=== PATIENT | male | born 2000 | race Asian ===

== ENCOUNTER 2022-12-14 09:08 | Emergency (ER) | payer BC, SELFPAY ==
[2022-12-14 09:12] VITALS: BP 130/83; PULSE 821; RESP 18; TEMP 36.3; O2SAT 96; BMI 26.6
--- NOTE | 2022-12-14 09:34 | ED_ITS ---
HPI - General Adult General Chief complaint: Laceration/Wound Stated complaint: RT pinky lac Time Seen by Provider: 12/14/22 09:11 History of Present Illness HPI narrative: Patient accidentally cut his right little finger over the dorsum of the mid phalanx on glass last night. He does not think he has any glass in the wound it is fairly small about 3 mm, but it does gape slightly. No bleeding, this happened last night. He thinks he is up-to-date on tetanus. He is otherwise quite healthy. He is moving the finger fully Related Data Home Medications Medication Instructions Recorded Confirmed No Known Home Medications 12/14/22 12/14/22 Allergies Allergy/AdvReac Type Severity Reaction Status Date / Time No Known Drug Allergies Allergy Verified 12/14/22 09:14 Review of Systems Narrative: No history infections, thinks he is up-to-date on tetanus PFSH PFSH Social History Smoking Status: Never smoker Do you use any of these nicotine containing products: None Non-prescribed substance use: denies use Exam Narrative: Exam Narrative: Objective: Vital signs unremarkable the patient's right little finger over the dorsum mid phalanx shows a small 3 mm cut gapes minimally looks fairly shallow. Cannot feel any glass in the area Procedure: Sterile soaking in Shur-Clens and saline. Will get an x-ray for completeness given throughout foreign body. Const: Vital Signs, click to edit/add: Vital Signs - 24 hr 12/14/22 09:12 Temperature 97.3 F L Pulse Rate [Right Pulse Oximeter] 821 H Respiratory Rate 18 Blood Pressure [Ri ght Upper Arm] 130/83 Pulse Oximetry 96 Oxygen Delivery Me thod Room Air Course Vital Signs Vital signs: Initial Vital Signs Temperature 97.3 F L 12/14/22 09:12 Temperature Source Temporal Artery Scan 12/14/22 09:12 Pulse Rate 821 H 12/14/22 09:12 Respiratory Rate 18 12/14/22 09:12 Blood Pressure 130/83 12/14/22 09:12 Blood Pressure Mean 98 12/14/22 09:12 Blood Pressure Position Sitting 12/14/22 09:12 Pulse Oximetry 96 12/14/22 09:12 Oxygen Delivery Method Room Air 12/14/22 09:12 Vital Signs Temperature 97.3 F L 12/14/22 09:12 Pulse Rate 821 H 12/14/22 09:12 Respiratory Rate 18 12/14/22 09:12 Blood Pressure 130/83 12/14/22 09:12 Pulse Oximetry 96 12/14/22 09:12 Oxygen Delivery Method Room Air 12/14/22 09:12 Temperature 97.3 F L 12/14/22 09:12 Pulse Rate 821 H 12/14/22 09:12 Respiratory Rate 18 12/14/22 09:12 Blood Pressure 130/83 12/14/22 09:12 Pulse Oximetry 96 12/14/22 09:12 Oxygen Delivery Method Room Air 12/14/22 09:12 Medical Decision Making MDM Narrative Medical decision making narrative: Will check on the patient's tetanus status, soak the wound, I do not think it needs stitches it is fairly small and superficial. Make sure there was no glass shard deep. Will get an x-ray. If this is negative then observation keep covered for couple of days bacitracin topically as needed. Return as needed. Addendum: Patient declined x-ray to rule out foreign body. He is up-to-date on tetanus by his history he thinks he had 1 in 2019. Keep covered soak as needed bacitracin topically and a bandage. Discharge Plan Discharge Clinical Impression: Laceration Patient Disposition: Home, Self-Care Condition: Stable Additional Instructions: Keep dressing on today. Soak twice a day in soapy water starting tomorrow, cover with a bandage, bacitracin topically as needed. Return as needed if redness or changes of infection. Activity Level: Light activity Discharge Diet: Regular Prescriptions: No Action No Known Home Medications Stand Alone Forms: [employer] Info Instructions
--- NOTE | 2022-12-14 09:34 | ED.NURSE ---
Pt finger soaking in hibiclens.
== END 2022-12-14 10:16 | disposition home or self-care (01) ==
PROVIDERS: Emergency Provider Family Medicine
DX: S61.216A Laceration without foreign body of right little finger without damage to nail, initial encounter (principal); W25.XXXA Contact with sharp glass, initial encounter
CPT/HCPCS: 90471; 99282; 99283; 99284